=== PATIENT | male | born 1970 | race Caucasian/White ===

== ENCOUNTER 2018-10-11 20:45 | Emergency (ER) | payer BC ==
[~2018-10-11] VITALS: Ht 180.3 cm; Wt 90.9 kg
[~2018-10-11 20:45] MED LIST: CEPHALEXIN500 M1 PO; NORCO 325 MG-7.1 TAB PO; PHENERGAN 25 TA25 MG PO; PHENERGAN25 MG RC
[2018-10-11 20:57] VITALS: BP 163/99; TEMP 97.2
[2018-10-11 21:52] LABS: BASO # 0.1 (0.0-0.2); BASO % 0.4 % (0.0-2.0); EOS # 0.2 (0.0-0.7); EOS % 1.5 % (0-4.0); GRAN % 69.3 % (42.2-75.2); HEMATOCRIT 46.6 % (42.0-52.0); HEMOGLOBIN 16.2 g/dl (13.5-18.0); LYMPH # 2.3 (1.2-3.4); LYMPH % 19.7 % (20.0-51.0); MEAN CELL VOLUME 95 fl (80.0-100.0); MEAN CORPUSCULAR HEMOGLOBIN 33 pg (27.0-31.0); MEAN CORPUSCULAR HGB CONC 35 g/dl (33.0-37.0); MONO % 8.8 % (1.7-9.3); PLATELET COUNT 220 K/mm3 (130-400); RED BLOOD COUNT 4.93 M/mm3 (4.20-5.60); REDCELL DISTRIBUTION WIDTH-CV 11.9 % (11.5-14.5)
[2018-10-11 22:03] LABS: ALANINE AMINOTRANSFERASE 84 U/L (21-72); ALBUMIN 4.6 gm/dL (3.5-5.0); ALKALINE PHOSPHATASE 60 U/L (50-136); ANION GAP 9 mmol/L (7-16); AST,SGOT 47 U/L (15-37); BILIRUBIN,TOTAL 0.7 mg/dL (0.0-1.0); BLOOD UREA NITROGEN 15 mg/dL (9-20); C-REACTIVE PROTEIN 1.3 mg/dL (0.0-0.9); CALCIUM 9.5 mg/dL (8.4-10.2); CARBON DIOXIDE 29 mmol/L (22-30); CHLORIDE 99 mmol/L (98-107); CREATININE, serum 1.03 mg/dL (0.66-1.25); GLUCOSE 117 mg/dL (74-106); LIPASE 156 U/L (23-300); POTASSIUM 3.9 mmol/L (3.4-5.0); SODIUM 136 mmol/L (137-145); TOTAL PROTEIN 8.3 gm/dL (6.4-8.2)
[2018-10-11 22:12] LABS: TROPONIN-I < 0.012 ng/mL (0.000-0.034)
[2018-10-11] MEDS ORDERED: FLEXERIL 1010 MG/TAB PO (22:39)
[2018-10-11] MEDS ORDERED: NORCO 325 MG-51 TAB PO (22:39)
[2018-10-11 23:03] VITALS: PULSE 89
== END 2018-10-11 23:05 | disposition home or self-care (01) ==
LOC: COL.ER 20:45
PROVIDERS: Emergency Medicine
DX: R10.9 Unspecified abdominal pain (principal); F17.210 Nicotine dependence, cigarettes, uncomplicated
CPT/HCPCS: J1170; J1885; J2405; J7030; Q9967

== ENCOUNTER 2019-10-24 07:16 | Inpatient (IN) | payer BC ==
[~2019-10-24] VITALS: Ht 180.3 cm; Wt 94.5 kg
[2019-10-24] VITALS (200 sets, daily range): BP systolic 110–132; BP diastolic 70–92; PULSE 77–111; TEMP 97.9–99.6; O2SAT 96–100
[~2019-10-24 07:16] MED LIST changes: +FLEXERIL 1010 MG/TAB PO; +NORCO 325 MG-51 TAB PO
[2019-10-24 07:47] LABS: HEMATOCRIT 44.6 % (42.0-52.0); HEMOGLOBIN 15.2 g/dl (13.5-18.0); MEAN CELL VOLUME 96 fl (80.0-100.0); MEAN CORPUSCULAR HEMOGLOBIN 33 pg (27.0-31.0); MEAN CORPUSCULAR HGB CONC 34 g/dl (33.0-37.0); MEAN PLATELET VOLUME 9.6 fl (7.4-10.4); PLATELET COUNT 245 K/mm3 (130-400); RED BLOOD COUNT 4.63 M/mm3 (4.20-5.60); REDCELL DISTRIBUTION WIDTH-CV 12.1 % (11.5-14.5)
[2019-10-24 07:56] LABS: ALBUMIN 4.7 gm/dL (3.5-5.0); BILIRUBIN,TOTAL 0.4 mg/dL (0.0-1.0); CALCIUM 9.6 mg/dL (8.4-10.2); CREATININE, serum 0.81 (0.66-1.25); POTASSIUM 4.5 mmol/L (3.4-5.0); TOTAL PROTEIN 8.5 gm/dL (6.4-8.2)
[2019-10-24 08:15] LABS: TROPONIN-I 0.309 ng/mL (0.000-0.035)
[2019-10-24 08:47] LABS: INR 1.1 (0.8-3.0); PROTHROMBIN TIME 12.8 SECONDS (9.7-12.8)
[2019-10-24 08:49] LABS: PARTIAL THROMBOPLASTIN TIME 33.9 SECONDS (26.0-37.0)
[2019-10-24 08:57] LABS: BAND 5 % (0-10); EOSINOPHIL 1 % (0-4); LYMPHOCYTE 12 % (20.0-51.0); NEUTROPHILS 75 % (42.0-75.2); PLATELET ESTIMATE NORMAL (NORMAL)
--- NOTE | 2019-10-24 10:20 | NUR ---
SEE MERGE DOCUMENTATION FOR MEDICATION ADMINISTRATION TIMES AND INTRA/POST PROCEDURE SEDATION ASSESSMENTS.
--- NOTE | 2019-10-24 12:36 | NUR ---
Pt sleeping during last 2 post-cath checks. Wakes easily to stimuli. Family bedside. They deny needs at this time. Call light in reach.
--- NOTE | 2019-10-24 14:00 | NUR ---
REPORT RECEIVED FROM STEFANIE SMITH FROM ED DEPARTMENT.
--- NOTE | 2019-10-24 14:18 | NUR ---
PATIENT BROUGHT OVER FROM ER VIA STRETCHER BY STEFANIE SMITH. PATIENT AWAKE, ALERT, AND ORIENTED. PATIENT C/O GENERALIZED PAIN TO RIGHT SIDE OF CHEST AND BACK, RATING 5/10. PATIENT STATES HE FEELS A LITTLE SHORT OF BREATH BUT DENIES DIZZINES. PATIENT ABLE TO PIVOT TO ICU BED WITHOUT DIFFICULTY. PT CURRENTLY HAS NITRO GTT INFUSING AT 35MCG/MIN.
--- NOTE | 2019-10-24 14:40 | NUR ---
DR STEELE PRESENT TO SPEAK WITH PATIENT. PROVIDER CLARIFIED MED ORDERS TO WEAN NITRO GTT DOWN AFTER GIVING 1ST DOSE OF METOPROLOL NOW. PROVIDER ALSO WANTS PATIENT TO BE ON ASA, BRILLINTA, ATROVASTATIN, AND CAN HAVE TYLENOL FOR MILD PAIN AND MORPHINE FOR SEVERE PAIN.
--- NOTE | 2019-10-24 14:43 | NUR ---
PT IN ED
--- NOTE | 2019-10-24 15:05 | NUR ---
TR BAND RELEASED BY 5ML. TR BAND REMOVED. NO BLEEDING OR HEMATOMA NOTED. PT TOLERATED WELL.
--- NOTE | 2019-10-24 15:07 | NUR ---
NITRO GTT DECREASED TO 25MCG/MIN PER DR STEELE'S VERBAL ORDER TO WEAN GTT OFF SLOWLY.
--- NOTE | 2019-10-24 15:30 | NUR ---
TR BAND NO LONGER IN PLACE
--- NOTE | 2019-10-24 17:21 | NUR ---
NITRO GTT DISCONTINUED.
--- NOTE | 2019-10-24 20:00 | NUR ---
PATIENT COMPLAINS OF CHEST PAIN STABBING 05/14. CALLED CARDIOLOGY, ADMINISTERED, NITRO DRIP 50 MCQ/MIN PER ORDER, REASSEMENT AT 2200, PATIENT DENIES PAIN
[2019-10-25] VITALS (9 sets, daily range): BP systolic 106–131; BP diastolic 69–96; PULSE 63–85; TEMP 97.6–98.6
--- NOTE | 2019-10-25 00:04 | NUR ---
PATIENT ASLEEP NOT DISTURBED
--- NOTE | 2019-10-25 06:10 | NUR ---
PATIENT COMPLAINS OF MILD CHEST PAIN ASKING FOR TYLENOL, MEDS ADMINISTERED
[2019-10-25 06:46] LABS: BASO % 0.3 % (0.0-2.0); EOS # 0.1 (0.0-0.7); EOS % 0.4 % (0-4.0); GRAN # 8.7 (1.4-6.5); GRAN % 77.4 % (42.2-75.2); HEMATOCRIT 39.2 % (42.0-52.0); HEMOGLOBIN 13.3 g/dl (13.5-18.0); LYMPH # 1.3 (1.2-3.4); LYMPH % 11.7 % (20.0-51.0); MEAN CELL VOLUME 97 fl (80.0-100.0); MEAN CORPUSCULAR HEMOGLOBIN 33 pg (27.0-31.0); MEAN CORPUSCULAR HGB CONC 34 g/dl (33.0-37.0); MEAN PLATELET VOLUME 9.6 fl (7.4-10.4); MONO # 1.1 (0.1-0.6); MONO % 9.6 % (1.7-9.3); PLATELET COUNT 203 K/mm3 (130-400); RED BLOOD COUNT 4.05 M/mm3 (4.20-5.60); REDCELL DISTRIBUTION WIDTH-CV 12.1 % (11.5-14.5)
[2019-10-25 06:58] LABS: CALCIUM 8.9 mg/dL (8.4-10.2); CHOLESTEROL RISK RATIO 7.2; CREATININE, serum 0.89 (0.66-1.25); MAGNESIUM 1.9 mg/dL (1.6-2.3); PHOSPHOROUS 2.8 mg/dL (2.5-4.5); POTASSIUM 3.9 mmol/L (3.4-5.0)
--- NOTE | 2019-10-25 07:10 | NUR ---
Report received from LUIS Garcia.
--- NOTE | 2019-10-25 08:00 | NUR ---
Assessment completed. pt resting in bed, easily arousable. States chest pain is better after tylenol, feels sore /. Remains Nitro gtt. VSS. Discussed plan of care with new heart medications and Dr mensah. Pt verbalized understanding. Call light in reach.
--- NOTE | 2019-10-25 13:47 | NUR ---
Limited ECHO being done at bedside.
--- NOTE | 2019-10-25 15:21 | NUR ---
Plan: To return home with Lia . Alternate support Son Tima . Assess: SW met with patient and in room. Patient gave verbal auth to talk about care plan. Patient reports that he does not have a PCP but has used [facility] in the past. Patient reports that he is okay with a follow-up there upon DC. Patient reports that he uses [facility] in [place] and he does not have any DME use. will transport home, denies having a DPOA or ADD. Action: Sw educated on supports and services. No additional needs identified at this time.
--- NOTE | 2019-10-25 19:09 | NUR ---
Report given to LUIS Quesada.
--- NOTE | 2019-10-25 19:15 | NUR ---
Received report from LUIS Gómez.
[2019-10-25 23:06] LABS: COLLECTION METHOD CLEAN CATCH
[2019-10-25 23:11] LABS: MUCOUS Present /lpf; PH 7 (5-8); SQUAMOUS EPITHELIAL None Seen /hpf; URINE APPEARANCE Clear; URINE BACTERIA None Seen /hpf; URINE BILIRUBIN Negative (NEGATIVE); URINE BLOOD 1+ (NEGATIVE); URINE COLOR Yellow; URINE GLUCOSE Negative (NEGATIVE); URINE KETONE Negative (NEGATIVE); URINE LEUKOCYTE ESTERASE Negative (NEGATIVE); URINE NITRATE Negative (NEGATIVE); URINE PROTEIN(semi-quant) Negative (NEGATIVE); URINE RBC 0-2 /hpf; URINE UROBILINOGEN Negative (NEGATIVE)
[2019-10-26] VITALS (7 sets, daily range): BP systolic 116–133; BP diastolic 75–84; PULSE 54–77; TEMP 98.1–100.3
[2019-10-26 06:11] LABS: BASO % 0.4 % (0.0-2.0); EOS # 0.3 (0.0-0.7); EOS % 3.1 % (0-4.0); GRAN % 71.7 % (42.2-75.2); HEMATOCRIT 43.6 % (42.0-52.0); LYMPH # 1.4 (1.2-3.4); LYMPH % 16.6 % (20.0-51.0); MEAN CELL VOLUME 96 fl (80.0-100.0); MEAN CORPUSCULAR HEMOGLOBIN 33 pg (27.0-31.0); MEAN CORPUSCULAR HGB CONC 34 g/dl (33.0-37.0); MEAN PLATELET VOLUME 9.5 fl (7.4-10.4); MONO # 0.7 (0.1-0.6); MONO % 7.8 % (1.7-9.3); PLATELET COUNT 220 K/mm3 (130-400); RED BLOOD COUNT 4.54 M/mm3 (4.20-5.60); REDCELL DISTRIBUTION WIDTH-CV 12.1 % (11.5-14.5)
[2019-10-26 06:27] LABS: CALCIUM 9.3 mg/dL (8.4-10.2); CREATININE, serum 0.9 (0.66-1.25); POTASSIUM 4.2 mmol/L (3.4-5.0)
--- NOTE | 2019-10-26 07:00 | NUR ---
Report given to LUIS Gómez.
--- NOTE | 2019-10-26 14:20 | NUR ---
Pt arrived to room 308 at this time. He is up independently. He is A/O x4. His breathing is even and unlabored on RA. Pt denies SOB, lungs CTA. No pain or chest pain present, HR regular . Site to r radial CDI, no hematoma or bruising present. Tele in place. POC discussed with patient who verbalizes understanding. No needs at this time. Call light within reach.
--- NOTE | 2019-10-26 20:00 | NUR ---
Received report from LUIS Garcia. Assessment complete. Denies any pain, SOB, nausea. C/O headache relieved with PRN Tylenol. Family at bedside. Alert and oriented. Meds administered as ordered. Needs met. Pt aware of NPO status after midnight. Tele monitor in place, leads checked. Call light within reach.
[2019-10-27] VITALS (342 sets, daily range): BP systolic 105–132; BP diastolic 73–89; PULSE 56–76; TEMP 97–98.5; O2SAT 85–100
--- NOTE | 2019-10-27 05:09 | NUR ---
Pt NPO since midnight. NS started at 0000 rate 75ml/hr. Pt uneventful during this shift. Needs met. call light within reach.
[2019-10-27 06:01] LABS: BASO % 0.5 % (0.0-2.0); EOS # 0.3 (0.0-0.7); GRAN # 5.4 (1.4-6.5); GRAN % 68.9 % (42.2-75.2); HEMATOCRIT 44.6 % (42.0-52.0); HEMOGLOBIN 15.1 g/dl (13.5-18.0); LYMPH # 1.4 (1.2-3.4); LYMPH % 17.5 % (20.0-51.0); MEAN CELL VOLUME 97 fl (80.0-100.0); MEAN CORPUSCULAR HEMOGLOBIN 33 pg (27.0-31.0); MEAN CORPUSCULAR HGB CONC 34 g/dl (33.0-37.0); MEAN PLATELET VOLUME 10.1 fl (7.4-10.4); MONO # 0.7 (0.1-0.6); MONO % 8.6 % (1.7-9.3); PLATELET COUNT 241 K/mm3 (130-400); RED BLOOD COUNT 4.62 M/mm3 (4.20-5.60); REDCELL DISTRIBUTION WIDTH-CV 12.1 % (11.5-14.5)
[2019-10-27 06:25] LABS: CALCIUM 9.3 mg/dL (8.4-10.2); CREATININE, serum 1.1 (0.66-1.25); POTASSIUM 4.2 mmol/L (3.4-5.0)
[2019-10-27 06:28] LABS: INR 1.1 (0.8-3.0); PROTHROMBIN TIME 12.9 SECONDS (9.7-12.8)
[2019-10-27 06:31] LABS: PARTIAL THROMBOPLASTIN TIME 33.1 SECONDS (26.0-37.0)
--- NOTE | 2019-10-27 07:10 | NUR ---
Report given to LUIS Garcia.
--- NOTE | 2019-10-27 07:59 | NUR ---
Assessment complete. Patient laying in bed. Alert and oriented x4. Tolerated assessment well. Consent signed and obtained for heart cath. Patient refused Nicoderm patch, stated he did not need it. VSS. IV sites both CD&I. Patient expressed no further needs. Call light within reach.
--- NOTE | 2019-10-27 08:20 | NUR ---
Pt left for heart cath at this time.
--- NOTE | 2019-10-27 08:44 | NUR ---
SEE MERGE DOCUMENTATION FOR MEDICATION ADMINISTRATION TIMES AND INTRA/POST PROCEDURE SEDATION ASSESSMENTS.
--- NOTE | 2019-10-27 10:11 | NUR ---
Report recieved from Radha SMITH on medical unit. Patient currently in CV lab. Will await report and arrival.
--- NOTE | 2019-10-27 10:11 | NUR ---
Report recieved from Addy SMITH in CV lab.
--- NOTE | 2019-10-27 10:29 | NUR ---
Report given to LUIS Leone in ICU.
--- NOTE | 2019-10-27 10:30 | NUR ---
Arrives to [facility] from CV lab with RN at bedside. Awake and alert, denies complaints of pain at this time. Cath site, Right Femerol, CDI and soft to touch. PPPx2. and son at bedside. All deny needs, water provided. Returned activity and flat time rules, voices understanding. Call light at side.
--- NOTE | 2019-10-27 14:35 | NUR ---
Scant eraser sized area of blood on dressing to right groin. Site continues to be soft. HOB increased to 40-45 degrees. Educated patient on S/S of bleeding and when to call the nurse; patient and state understanding.
--- NOTE | 2019-10-27 15:55 | NUR ---
Follow up/New patient appointment made with Dr. Brock at [facility] per provider/patient request. Appointment date and time charted in discharge packet.
--- NOTE | 2019-10-27 18:45 | NUR ---
Transferred to ICU room 4 via wheelchair. Settled into bed and monitors applied. Denies needs. Cath site to right groin with scant drainage, no more since previously assessed. Site soft, no evidence of hematoma. Denies pain, denies needs. Call light at side and bed rails up x3 per patient request
--- NOTE | 2019-10-27 19:00 | NUR ---
Received report from LUIS Leone.
--- NOTE | 2019-10-27 19:12 | NUR ---
Report given to Annemarie SMITH.
[2019-10-28] VITALS (179 sets, daily range): BP systolic 114–130; BP diastolic 47–92; PULSE 60–86; TEMP 98–98.6; O2SAT 89–97
[2019-10-28 05:56] LABS: BASO % 0.5 % (0.0-2.0); EOS # 0.3 (0.0-0.7); EOS % 3.2 % (0-4.0); GRAN # 6.3 (1.4-6.5); GRAN % 71.8 % (42.2-75.2); HEMATOCRIT 45.2 % (42.0-52.0); HEMOGLOBIN 15.6 g/dl (13.5-18.0); LYMPH # 1.3 (1.2-3.4); LYMPH % 15.1 % (20.0-51.0); MEAN CELL VOLUME 95 fl (80.0-100.0); MEAN CORPUSCULAR HEMOGLOBIN 33 pg (27.0-31.0); MEAN CORPUSCULAR HGB CONC 35 g/dl (33.0-37.0); MEAN PLATELET VOLUME 9.7 fl (7.4-10.4); MONO # 0.8 (0.1-0.6); MONO % 8.9 % (1.7-9.3); PLATELET COUNT 240 K/mm3 (130-400); RED BLOOD COUNT 4.77 M/mm3 (4.20-5.60); REDCELL DISTRIBUTION WIDTH-CV 11.7 % (11.5-14.5)
[2019-10-28 06:08] LABS: CALCIUM 9.4 mg/dL (8.4-10.2); CREATININE, serum 0.98 (0.66-1.25); POTASSIUM 4.5 mmol/L (3.4-5.0)
--- NOTE | 2019-10-28 07:15 | NUR ---
Report recieved from LUIS Sharpe. Patient care assumed.
--- NOTE | 2019-10-28 07:15 | NUR ---
Report given to LUIS Gómez.
[2019-10-28] MEDS ORDERED: EFFIENT10 MG PO (08:43)
[2019-10-28] MEDS ORDERED: ASPIRIN E.C. 8181 MG PO (08:44)
[2019-10-28] MEDS ORDERED: NITROSTAT0.4 MG/TAB SL (08:44)
[2019-10-28] MEDS ORDERED: LIPITOR 40MG TA40 MG PO (08:44)
[2019-10-28] MEDS ORDERED: LOPRESSOR 225 MG/TAB PO (08:45)
--- NOTE | 2019-10-28 09:20 | NUR ---
Dr. Vela rounds at this time. No new orders recieved.
[2019-10-28] MEDS ORDERED: PRINIVIL5 MG PO (10:43)
--- NOTE | 2019-10-28 10:45 | NUR ---
Dr. Allen rounds at this time. Orders as entered CPOE. POC to include patient discharge home. Care ongoing.
--- NOTE | 2019-10-28 10:52 | NUR ---
Cardiac Specialist attended clinical rounds with the team. Patient to discharge home today. No additional concerns at this time.
--- NOTE | 2019-10-28 12:00 | NUR ---
Patient and provided discharge education. Questions invited and answered. INT IV removed.
--- NOTE | 2019-10-28 12:20 | NUR ---
Patient discharges ambulatory to private vehicle. All belongings sent with. Care completed.
== END 2019-10-28 12:20 | disposition home or self-care (01) | DRG 247 ==
LOC: COL.ER 07:16 → EU 09:36 → IMCU 09:36 → ICU 09:36 → MEDICAL 10-26 14:32 → IMCU 10-27 09:14 → ICU 10-27 19:09
PROVIDERS: Emergency Medicine; Internal Medicine Cardiovascular Disease; Nurse Practitioner; Physician Assistant; ADMIT Student in an Organized Health Care Education/Training Program
PROC: 027035Z Dilation of Coronary Artery, One Artery with Two Drug-eluting Intraluminal Devices, Percutaneous Approach (ICD-10-PCS; principal; 2019-10-24)
PROC: 027034Z Dilation of Coronary Artery, One Artery with Drug-eluting Intraluminal Device, Percutaneous Approach (ICD-10-PCS; 2019-10-24)
PROC: B2111ZZ Fluoroscopy of Multiple Coronary Arteries using Low Osmolar Contrast (ICD-10-PCS; 2019-10-24)
PROC: 4A023N7 Measurement of Cardiac Sampling and Pressure, Left Heart, Percutaneous Approach (ICD-10-PCS; 2019-10-24)
DX: I21.4 Non-ST elevation (NSTEMI) myocardial infarction (principal); I50.22 Chronic systolic (congestive) heart failure; E11.9 Type 2 diabetes mellitus without complications; E78.5 Hyperlipidemia, unspecified; F17.210 Nicotine dependence, cigarettes, uncomplicated; I25.5 Ischemic cardiomyopathy; D72.829 Elevated white blood cell count, unspecified; F10.10 Alcohol abuse, uncomplicated; I25.10 Atherosclerotic heart disease of native coronary artery without angina pectoris
CPT/HCPCS: 99223-AI; 99231-AI; 99232-AI; 99239; C1725; C1769; C1874; C1887; C9600; J1170; J1644; J1650; J2250; J2270; J2405; J3010; J7030; Q9967

== ENCOUNTER 2022-02-07 22:50 | Emergency (ER) | payer BC ==
[~2022-02-07] VITALS: Ht 180.3 cm; Wt 97.7 kg
[~2022-02-07 22:50] MED LIST changes: +ASPIRIN E.C. 8181 MG PO; +EFFIENT10 MG PO; +LIPITOR 40MG TA40 MG PO; +LOPRESSOR 225 MG/TAB PO; +NITROSTAT0.4 MG/TAB SL; +PRINIVIL5 MG PO
[2022-02-07 22:54] VITALS: TEMP 98.4
[2022-02-07 23:49] LABS: BASO # 0.1 K/mm3 (0.0-0.2); BASO % 0.5 % (0.0-2.0); EOS # 0.1 K/mm3 (0.0-0.7); EOS % 0.7 % (0.0-4.0); GRAN # 12.6 K/mm3 (1.4-6.5); GRAN % 78.9 % (42.2-75.2); HEMATOCRIT 43.3 % (42.0-52.0); LYMPH # 1.8 K/mm3 (1.2-3.4); LYMPH % 11.1 % (20.0-51.0); MEAN CELL VOLUME 94 fl (80.0-100.0); MEAN CORPUSCULAR HEMOGLOBIN 33 pg (27-31); MEAN CORPUSCULAR HGB CONC 35 g/dl (33.0-37.0); MEAN PLATELET VOLUME 9.5 fl (7.4-10.4); MONO # 1.3 K/mm3 (0.1-0.6); MONO % 8.3 % (1.7-9.3); PLATELET COUNT 224 K/mm3 (130-400); RED BLOOD COUNT 4.59 M/mm3 (4.20-5.60); REDCELL DISTRIBUTION WIDTH-CV 12.6 % (11.5-14.5)
[2022-02-08 00:10] LABS: ALBUMIN 4.5 gm/dL (3.5-5.0); CALCIUM 9.5 mg/dL (8.4-10.2); CREATININE, serum 0.88 mg/dL (0.72-1.25); POTASSIUM 4.4 mmol/L (3.5-4.5); TOTAL PROTEIN 8.6 gm/dL (6.2-8.1)
[2022-02-08 01:37] LABS: COLLECTION METHOD CLEAN CATCH
[2022-02-08 01:52] LABS: MUCOUS Present (NOT PRESENT); PH 5 (5-8); URINE APPEARANCE Clear (CLEAR/HAZY); URINE BACTERIA None Seen /hpf (NONE SEEN); URINE BILIRUBIN Negative (NEGATIVE); URINE BLOOD Negative (NEGATIVE); URINE COLOR Yellow (YELLOW); URINE GLUCOSE 3+ (NEGATIVE); URINE KETONE Negative (NEGATIVE); URINE LEUKOCYTE ESTERASE Negative (NEGATIVE); URINE NITRATE Negative (NEGATIVE); URINE PROTEIN(semi-quant) Negative (NEGATIVE); URINE UROBILINOGEN Negative (NEGATIVE)
[2022-02-08 02:45] VITALS: BP 132/79; PULSE 71
== END 2022-02-08 02:45 | disposition home or self-care (01) ==
LOC: COL.ER 22:50
PROVIDERS: Student in an Organized Health Care Education/Training Program
DX: R10.9 Unspecified abdominal pain (principal); D72.829 Elevated white blood cell count, unspecified; F17.210 Nicotine dependence, cigarettes, uncomplicated
CPT/HCPCS: J1170; J1885; J2405; Q9967